=== PATIENT | male | born 1980 | race Caucasian/White ===

== ENCOUNTER 2024-02-03 15:33 | Emergency (ER) | payer MEDICAID ==
[~2024-02-03] VITALS: Ht 190.5 cm; Wt 85.5 kg
[2024-02-03 17:28] LABS: BASOPHILS # (AUTO) 0.1 X10'3 (0-0.2); BASOPHILS % (AUTO) 0.9 % (0-1); EOSINOPHILS # (AUTO) 0.1 X10'3 (0-0.9); EOSINOPHILS % (AUTO) 1.4 % (0-6); HEMATOCRIT 42.4 % (42.0-52.0); HEMOGLOBIN 14.6 g/dl (14.0-17.9); LYMPHOCYTES # (AUTO) 2.5 X10'3 (1.1-4.8); LYMPHOCYTES % (AUTO) 28.7 % (21-51); MEAN CORPUSCULAR HEMOGLOBIN 31.7 PG (27.0-31.0); MEAN CORPUSCULAR HGB CONC 34.5 g/dL (33.0-36.5); MEAN CORPUSCULAR VOLUME 91.8 FL (78-98); MEAN PLATELET VOLUME 9.3 FL (7.4-10.4); MONOCYTES # (AUTO) 0.6 X10'3 (0-0.9); MONOCYTES % (AUTO) 7.4 % (2-12); NEUTROPHILS # (AUTO) 5.2 X10'3 (1.8-7.7); NEUTROPHILS % (AUTO) 61.6 % (42-75); PLATELET COUNT 271 X10'3 (140-440); RED BLOOD COUNT 4.61 X10'6 (4.70-6.10); RED CELL DISTRIBUTION WIDTH 14.2 % (11.5-14.5); WHITE BLOOD COUNT 8.5 X10'3 (4.5-11.0)
[2024-02-03 17:46] LABS: ANION GAP 13 (8-16); BLOOD UREA NITROGEN 12 MG/DL (7-18); BUN/CREATININE RATIO 9.4 (10.0-20.0); CALCIUM 11.2 MG/DL (8.5-10.1); CHLORIDE 105 MMOL/L (99-107); CREATININE 1.27 MG/DL (0.60-1.10); ETHANOL 171 MG/DL (<10); GLUCOSE 93 MG/DL (70-104); POTASSIUM 3.4 MMOL/L (3.5-5.1); SODIUM 141 MMOL/L (135-145); THYROID STIMULATING HORMONE 0.65 ulU/ml (0.34-4.50); TOTAL CARBON DIOXIDE 22.6 MMOL/L (24-32); eCRCL 88 ML/MIN; eGFR 61 ML/MIN
[2024-02-03] MEDS: LORazepam 1 MG tablet PO ONE (18:08)
[2024-02-03] MEDS: diphenhydrAMINE 50 mg/ml inj IM ONE (19:19)
[2024-02-03] MEDS: haloperidol lactate 5mg/ml inj IM ONE (19:20)
[2024-02-03] MEDS: LORazepam 2 mg/ml vial IM ONE (19:20)
[2024-02-03] MEDS ORDERED: QUET50TA PO (21:19)
[2024-02-03] MEDS ORDERED: OMEP20TA23 PO (21:19)
[2024-02-03] MEDS ORDERED: ALB0.5UD NEB (21:19)
[2024-02-03] MEDS ORDERED: IBUP-1984 PO (21:19)
[2024-02-03] MEDS ORDERED: AMIT25TA9 PO (21:19)
[2024-02-03 21:25] LABS: BILIRUBIN,URINE NEGATIVE (Neg); CLARITY,URINE CLEAR (Clear); COLOR,URINE YELLOW (Yellow); GLUCOSE, URINE NEGATIVE (Neg); KETONES,URINE TRACE mg/dl (Neg); LEUKOCYTE ESTERASE ,URINE TRACE (Neg); NITRITES, URINE NEGATIVE (Neg); OCCULT BLOOD,URINE NEGATIVE (Neg); PROTEIN,URINE NEGATIVE (Neg); UROBILINOGEN,URINE 0.2 E.U/dL (0.2-1.0)
[2024-02-03 21:40] LABS: UA COLLECTION TYPE CLN CATCH MIDSTREAM
[2024-02-03 21:41] LABS: BACTERIA,URINE FEW /HPF (Neg); MUCUS STRANDS NONE SEEN /LPF (Neg); RBC,URINE NONE SEEN /HPF (0-2); SQUAMOUS EPITHELIAL CELL,UR NONE SEEN /LPF (FEW)
[2024-02-03 21:54] LABS: URINE AMPHETAMINE SCREEN NEGATIVE (Neg); URINE BARBITUATE SCREEN POSITIVE (Neg); URINE BENZODIAZEPINES SCREEN POSITIVE (Neg); URINE CANNABINOID SCREEN NEGATIVE (Neg); URINE COCAINE SCREEN NEGATIVE (Neg); URINE METHADONE SCREEN NEGATIVE (Neg); URINE OPIATE SCREEN NEGATIVE (Neg); URINE PHENCYCLIDINE SCREEN NEGATIVE (Neg)
[2024-02-03] MEDS: ibuprofen tablet 400 MG TABLET PO SCH (23:29)
[2024-02-03] MEDS: amitriptyline 25mg tablet PO SCH (23:29)
[2024-02-03] MEDS: QUEtiapine 25mg tablet PO SCH (23:29)
[2024-02-04] MEDS: albuterol 2.5 MG/3 ML nebule NEB SCH (02:00)
[2024-02-04] MEDS: LORazepam 1 MG tablet PO ONE ×3 (05:17→15:37)
[2024-02-04] MEDS: pantoprazole 40mg Tablet.DR PO SCH (10:22)
[2024-02-04] MEDS ORDERED: LISI1TAB51 PO (13:09)
[2024-02-04] MEDS ORDERED: AMLO10TA5 PO (13:09)
[2024-02-04] MEDS: lisinopril 20mg tablet PO ONE (14:44)
[2024-02-04] MEDS: HYDROchlorothiazide 12.5mg capsule PO ONE (14:44)
[2024-02-04] MEDS ORDERED: LORazepam 1 MG tablet PO PRN (16:35)
[2024-02-04] MEDS: chlordiazePOXIDE 25mg capsule PO ONE ×2 (18:54)
[2024-02-04] MEDS: ondansetron 4mg rapidly disintigrating tab PO ONE (19:14)
[2024-02-04] MEDS ORDERED: CHLO25CA10 PO (20:00)
[2024-02-04 20:17] VITALS: BP 125/93; PULSE 112; RESP 16; TEMP 98; O2SAT 96
[2024-02-05] MEDS ORDERED: amLODIPine 5mg tablet PO SCH (08:00)
[2024-02-05] MEDS ORDERED: lisinopril 20mg tablet PO SCH (08:00)
[2024-02-05] MEDS ORDERED: HYDROchlorothiazide 12.5mg capsule PO SCH (08:00)
== END 2024-02-04 20:20 | disposition home or self-care (01) ==
LOC: ER 15:34
DX: F10.129 Alcohol abuse with intoxication, unspecified (principal); F99 Mental disorder, not otherwise specified; Z88.8 Allergy status to other drugs, medicaments and biological substances; Z20.822 Contact with and (suspected) exposure to COVID-19
CPT/HCPCS: 36415; 80048; 80305; 80320; 81001; 84443; 85025; 87811; 96372; 99285; J1200; J1630; J2060